=== PATIENT | female | born 2000 | race African-American/Black ===

== ENCOUNTER 2022-08-03 08:08 | Emergency (ER) | payer MEDICAID ==
[~2022-08-03] VITALS: Ht 152.4 cm; Wt 59.0 kg
[2022-08-03] MEDS ORDERED: METR375C2 PO (09:00)
[2022-08-03] MEDS ORDERED: AMOX1TAB16 PO ×2 (09:00→09:02)
[2022-08-03] MEDS ORDERED: METR-167 MT (09:01)
[2022-08-03 09:29] LABS: CLARITY URINE CLEAR (CLEAR); COLOR URINE YELLOW (YELLOW); KETONES URINE NEGATIVE (NEGATIVE); LEUKOCYTE ESTERASE URINE 1+ (NEGATIVE); NITRITE URINE NEGATIVE (NEGATIVE); OCCULT BLOOD URINE NEGATIVE (NEGATIVE); PH URINE 5.5 (4.5-8.0); PROTEIN URINE NEGATIVE (NEGATIVE); SPECIFIC GRAVITY URINE 1.016 (1.005-1.030); UROBILINOGEN URINE 0.2 E.U./dL (0.2-1.0)
[2022-08-03 09:51] VITALS: BP 151/82
[2022-08-05 04:07] LABS: NEISSERIA GONORRHOEAE NAA Negative (Negative)
== END 2022-08-03 09:54 | disposition home or self-care (01) ==
LOC: ER 08:08
DX: J03.90 Acute tonsillitis, unspecified (principal); N76.0 Acute vaginitis; J45.909 Unspecified asthma, uncomplicated; Z88.6 Allergy status to analgesic agent
CPT/HCPCS: 81003; 81025; 87491; 87591; 99283

== ENCOUNTER 2022-08-30 15:06 | Emergency (ER) | payer MEDICAID ==
[~2022-08-30] VITALS: Ht 152.4 cm; Wt 59.0 kg
[~2022-08-30 15:06] MED LIST: AMOX1TAB16 PO; METR-167 MT
[2022-08-30 15:10] VITALS: BP 124/79
[2022-08-30] MEDS ORDERED: DEXAMETHASONE 10 MG/ML VIAL IV ONE (16:15)
[2022-08-30] MEDS ORDERED: ALBU18HF2 IH (16:50)
== END 2022-08-30 18:35 | disposition home or self-care (01) ==
LOC: ER 15:13
DX: J06.9 Acute upper respiratory infection, unspecified (principal); J45.909 Unspecified asthma, uncomplicated; Z88.6 Allergy status to analgesic agent
CPT/HCPCS: 96374; 99283; J1100

== ENCOUNTER 2022-10-04 09:42 | Emergency (ER) | payer MEDICAID ==
[~2022-10-04] VITALS: Ht 152.4 cm; Wt 62.0 kg
[~2022-10-04 09:42] MED LIST changes: +ALBU18HF2 IH
[2022-10-04] MEDS ORDERED: DEXAMETHASONE 10 MG/ML VIAL IM ONE (10:30)
[2022-10-04 13:10] VITALS: BP 131/75
== END 2022-10-04 13:10 | disposition home or self-care (01) ==
LOC: ER 09:42
DX: U07.1 COVID-19 (principal); J06.9 Acute upper respiratory infection, unspecified; J45.909 Unspecified asthma, uncomplicated; Z88.6 Allergy status to analgesic agent
CPT/HCPCS: 87070; 87426; 87430; 96372; 99283; C9803; J1100